=== PATIENT | male | born 1965 | race African-American/Black ===

== ENCOUNTER 2017-08-01 13:42 | Emergency (ER) | payer SELFPAY, OTHER ==
[2017-08-01] MEDS: ALBUTEROL SULFATE 2.5 MG/0.5 ML INH NEB SOLN NEB (16:03)
[2017-08-01 16:51] LABS: INFLUENZA A AMPLIFICATION POSITIVE (NEGATIVE); INFLUENZA B AMPLIFICATION NEGATIVE (NEGATIVE)
[2017-08-01] MEDS: ACETAMINOPHEN 325 MG TAB PO (17:15)
== END 2017-08-01 17:17 | disposition home or self-care (01) ==
LOC: M ED 13:42
DX: J44.1 Chronic obstructive pulmonary disease with (acute) exacerbation (principal); J10.1 Influenza due to other identified influenza virus with other respiratory manifestations; E78.4 Other hyperlipidemia; Z87.891 Personal history of nicotine dependence
CPT/HCPCS: 71046

== ENCOUNTER 2017-09-18 21:21 | Emergency (ER) | payer MEDICAID, SELFPAY | END 2017-09-19 00:13 | disposition home or self-care (01) | LOC: M ED 09-19 00:13 | DX: S93.401A Sprain of unspecified ligament of right ankle, initial encounter (principal); V13.4XXA Pedal cycle driver injured in collision with car, pick-up truck or van in traffic accident, initial encounter; Y92.410 Unspecified street and highway as the place of occurrence of the external cause; R73.03 Prediabetes; I10 Essential (primary) hypertension; E78.9 Disorder of lipoprotein metabolism, unspecified; Z79.899 Other long term (current) drug therapy; Z88.0 Allergy status to penicillin; Z88.8 Allergy status to other drugs, medicaments and biological substances | CPT/HCPCS: 73610 ==

== ENCOUNTER → 2017-12-21 | Outpatient (CLI) | payer OTHER | LOC: M RAD 13:58 | DX: M41.9 Scoliosis, unspecified (principal); M51.16 Intervertebral disc disorders with radiculopathy, lumbar region; M51.17 Intervertebral disc disorders with radiculopathy, lumbosacral region; M48.061 Spinal stenosis, lumbar region without neurogenic claudication | CPT/HCPCS: 72148 ==

== ENCOUNTER → 2017-12-28 | Outpatient (CLI) | payer OTHER | LOC: M RAD 09:12 | DX: M25.571 Pain in right ankle and joints of right foot (principal); M21.961 Unspecified acquired deformity of right lower leg | CPT/HCPCS: 73721 ==

== ENCOUNTER 2018-07-15 11:45 | Emergency (ER) | payer OTHER ==
[~2018-07-15] VITALS: Ht 182.9 cm; Wt 115.9 kg
[~2018-07-15 11:45] MED LIST: CRES10TA32 PO; GABA-845 PO; OSEL75CA PO; VENTAER INH
[2018-07-15] MEDS ORDERED: MELO15TA28 (11:51)
[2018-07-15 12:29] LABS: BASO % 0.4 % (0.0-1.0); EOS # 0.6 10^3/uL (0.0-0.50); EOS % 10.6 % (0.0-3.0); HEMATOCRIT 40.9 % (42.0-52.0); HEMOGLOBIN 14.1 g/dl (13.5-17.5); LYMPH # 1.9 10^3/uL (1.5-4.5); LYMPH % 33.9 % (24.0-44.0); MEAN CORPUSCULAR HEMOGLOBIN 31.4 pg (27.0-33.0); MEAN CORPUSCULAR HGB CONC 34.5 g/dl (32.0-36.5); MEAN CORPUSCULAR VOLUME 91.1 fl (80.0-96.0); MONO # 0.4 10^3/uL (0.0-0.8); MONO % 6.3 % (0.0-5.0); NEUTROPHILS # 2.7 10^3/uL (1.8-7.7); NEUTROPHILS % 48.1 % (36.0-66.0); PLATELET COUNT, AUTOMATED 237 10^3/uL (150-450); RED BLOOD COUNT 4.49 10^6/uL (4.30-6.10); WHITE BLOOD COUNT 5.7 10^3/uL (4.0-10.0)
--- NOTE | 2018-07-15 12:34 | REP ---
Portable chest x-ray: Single view. History: Chest pain. Comparison study: August 01, 2017. Findings: EKG electrodes are seen. Lungs are well inflated and are clear. Pleural angles are sharp. Cardiomediastinal silhouette and bony thorax are unremarkable. Impression: Negative portable chest x-ray. Electronically Signed by Balwinder Taylor MD 07/15/2018 12:25 P
[2018-07-15 12:44] LABS: INR 1.05; PROTHROMBIN TIME 13.8 SECONDS (12.1-14.4)
[2018-07-15 12:59] LABS: ALBUMIN 3.7 GM/DL (3.2-5.2); ALT/SGPT 22 U/L (12-78); BILIRUBIN,TOTAL 0.5 MG/DL (0.2-1.0); BLOOD UREA NITROGEN 20 MG/DL (7-18); CALCIUM LEVEL 8.7 MG/DL (8.5-10.1); CARBON DIOXIDE LEVEL 26 MEQ/L (21-32); CHLORIDE LEVEL 105 MEQ/L (98-107); CPK CREATINE PHOSPHOKINASE 176 U/L (39-308); CREATININE FOR GFR 1.15 MG/DL (0.70-1.30); GLOMERULAR FILTRATION RATE > 60.0 (>56); GLUCOSE, FASTING 106 MG/DL (70-100); LIPASE 159 U/L (73-393); MB/CK RELATIVE INDEX 0.85 (< OR =4); POTASSIUM SERUM 4.1 MEQ/L (3.5-5.1); SODIUM LEVEL 138 MEQ/L (136-145); TOTAL PROTEIN 7.4 GM/DL (6.4-8.2); TROPONIN I < 0.02 NG/ML (< 0.10)
[2018-07-15 13:15] VITALS: BP 117/68
[2018-07-15] MEDS ORDERED: IBUP-1022 PO (13:32)
[2018-07-15] MEDS ORDERED: CYCL10TA PO (13:32)
--- NOTE | 2018-07-15 20:09 | ECGEPIP ---
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
== END 2018-07-15 13:54 | disposition home or self-care (01) ==
LOC: M ED 11:45
DX: M54.10 Radiculopathy, site unspecified (principal); I51.9 Heart disease, unspecified; Z88.0 Allergy status to penicillin; Z88.8 Allergy status to other drugs, medicaments and biological substances; Z79.899 Other long term (current) drug therapy

== ENCOUNTER 2019-03-07 15:29 | Emergency (ER) | payer MEDICAID, OTHER, SELFPAY ==
[~2019-03-07] VITALS: Ht 182.9 cm; Wt 108.0 kg
[~2019-03-07 15:29] MED LIST changes: +CRES10TA PO; -CRES10TA32 PO; +CYCL10TA PO; +IBUP-1022 PO; +MELO15TA28
[2019-03-07] MEDS ORDERED: IBUP200T45 PO (15:46)
[2019-03-07 16:02] LABS: BASO % 0.5 % (0.0-1.0); EOS # 0.4 10^3/uL (0.0-0.5); EOS % 6.1 % (0.0-3.0); HEMATOCRIT 41.9 % (42.0-52.0); HEMOGLOBIN 14.4 g/dl (13.5-17.5); LYMPH # 2.5 10^3/uL (1.5-5.0); LYMPH % 39.5 % (24.0-44.0); MEAN CORPUSCULAR HEMOGLOBIN 31.4 pg (27.0-33.0); MEAN CORPUSCULAR HGB CONC 34.4 g/dl (32.0-36.5); MEAN CORPUSCULAR VOLUME 91.5 fl (80.0-96.0); MONO # 0.4 10^3/uL (0.0-0.8); MONO % 6.8 % (0.0-5.0); NEUTROPHILS # 2.9 10^3/uL (1.5-8.5); NEUTROPHILS % 46.6 % (36.0-66.0); PLATELET COUNT, AUTOMATED 224 10^3/uL (150-450); RED BLOOD COUNT 4.58 10^6/uL (4.30-6.10); WHITE BLOOD COUNT 6.2 10^3/uL (4.0-10.0)
[2019-03-07 16:30] LABS: BLOOD UREA NITROGEN 13 MG/DL (7-18); CALCIUM LEVEL 9.1 MG/DL (8.5-10.1); CARBON DIOXIDE LEVEL 27 MEQ/L (21-32); CHLORIDE LEVEL 109 MEQ/L (98-107); CK-MB VALUE MASS 2.2 NG/ML (<3.6); CPK CREATINE PHOSPHOKINASE 166 U/L (39-308); CREATININE FOR GFR 1.12 MG/DL (0.70-1.30); GLOMERULAR FILTRATION RATE > 60.0 (>56); GLUCOSE, FASTING 115 MG/DL (70-100); MB/CK RELATIVE INDEX 1.33 (< OR =4); POTASSIUM SERUM 3.9 MEQ/L (3.5-5.1); SODIUM LEVEL 141 MEQ/L (136-145); TROPONIN I < 0.02 NG/ML (< 0.10)
--- NOTE | 2019-03-07 16:30 | REP ---
Clinical: Chest pain . Comparison: 07/15/2018 . Findings: The mediastinum and cardiac silhouette are stable and within normal limits for portable technique. The lung corey are clear without acute consolidation, effusion, or pneumothorax. Skeletal structures are intact. Impression: No acute cardiopulmonary process appreciated. Electronically Signed by Haroon Lee MD 03/07/2019 04:22 P
--- NOTE | 2019-03-07 19:38 | ECGEPIP ---
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
[2019-03-07 20:50] LABS: CK-MB VALUE MASS 1.9 NG/ML (<3.6); CPK CREATINE PHOSPHOKINASE 142 U/L (39-308); MB/CK RELATIVE INDEX 1.34 (< OR =4); TROPONIN I < 0.02 NG/ML (< 0.10)
[2019-03-07 21:26] VITALS: BP 138/97
--- NOTE | 2019-03-08 20:31 | ECGEPIP ---
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
== END 2019-03-07 21:27 | disposition home or self-care (01) ==
LOC: M ED 15:29
DX: R07.89 Other chest pain (principal); M54.12 Radiculopathy, cervical region; J45.909 Unspecified asthma, uncomplicated; Z79.899 Other long term (current) drug therapy; Z88.0 Allergy status to penicillin; Z88.1 Allergy status to other antibiotic agents

== ENCOUNTER 2019-04-30 16:18 | Emergency (ER) | payer MEDICAID, OTHER, SELFPAY ==
[~2019-04-30] VITALS: Ht 182.9 cm; Wt 106.8 kg
[~2019-04-30 16:18] MED LIST changes: +IBUP200T45 PO
[2019-04-30] MEDS ORDERED: MELO15TA28 PO (16:28)
[2019-04-30] MEDS ORDERED: MORPHINE 2 MG/ML 1ML VIAL (J2270) IV ONE (17:00)
[2019-04-30] MEDS ORDERED: ISOVUE-370 76% 100ML VIAL (Q9967) As Ordered ONE (17:36)
[2019-04-30 17:45] LABS: BASO % 0.4 % (0.0-1.0); EOS # 0.4 10^3/uL (0.0-0.5); EOS % 4.1 % (0.0-3.0); HEMATOCRIT 47.1 % (42.0-52.0); HEMOGLOBIN 15.4 g/dl (13.5-17.5); LYMPH # 1.7 10^3/uL (1.5-5.0); LYMPH % 16.6 % (24.0-44.0); MEAN CORPUSCULAR HEMOGLOBIN 30.9 pg (27.0-33.0); MEAN CORPUSCULAR HGB CONC 32.7 g/dl (32.0-36.5); MEAN CORPUSCULAR VOLUME 94.4 fl (80.0-96.0); MONO # 0.5 10^3/uL (0.0-0.8); NEUTROPHILS # 7.5 10^3/uL (1.5-8.5); NEUTROPHILS % 73.1 % (36.0-66.0); PLATELET COUNT, AUTOMATED 225 10^3/uL (150-450); RED BLOOD COUNT 4.99 10^6/uL (4.30-6.10); WHITE BLOOD COUNT 10.2 10^3/uL (4.0-10.0)
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
[2019-04-30 19:20] LABS: APPEARANCE, URINE CLEAR (CLEAR); BACTERIA, URINE AUTO NEGATIVE (NEGATIVE); BILIRUBIN, URINE AUTO NEGATIVE (NEGATIVE); BLOOD, URINE BLOOD NEGATIVE (NEGATIVE); COLOR, URINE YELLOW (YELLOW); GLUCOSE, URINE (UA) AUTO NEGATIVE (NEGATIVE); KETONE, URINE AUTO NEGATIVE (NEGATIVE); LEUKOCYTE ESTERASE, URINE AUTO NEGATIVE (NEGATIVE); MUCUS, URINE SMALL (NEGATIVE); NITRITE, URINE AUTO NEGATIVE (NEGATIVE); PROTEIN, URINE AUTO 1+ mg/dL (NEGATIVE); RBC, URINE AUTO 7 /HPF (0-3); SPECIFIC GRAVITY URINE AUTO 1.047 (1.002-1.035); SQUAMOUS EPITHELIAL CELL UR AU 0 /HPF (0-6); UROBILINOGEN, URINE AUTO 0.2 mg/dL (0.0-2.0); WBC, URINE AUTO 1 /HPF (0-3)
[2019-04-30 19:58] LABS: ALBUMIN 3.8 GM/DL (3.2-5.2); ALT/SGPT 28 U/L (12-78); BILIRUBIN,TOTAL 0.7 MG/DL (0.2-1.0); BLOOD UREA NITROGEN 11 MG/DL (7-18); CALCIUM LEVEL 8.9 MG/DL (8.5-10.1); CARBON DIOXIDE LEVEL 27 MEQ/L (21-32); CHLORIDE LEVEL 105 MEQ/L (98-107); CREATININE FOR GFR 1.17 MG/DL (0.70-1.30); GLOMERULAR FILTRATION RATE > 60.0 (>56); GLUCOSE, FASTING 85 MG/DL (70-100); POTASSIUM SERUM 4.3 MEQ/L (3.5-5.1); SODIUM LEVEL 135 MEQ/L (136-145); TOTAL PROTEIN 7.7 GM/DL (6.4-8.2)
[2019-04-30] MEDS ORDERED: NS 1,000 ML IV ONE (20:15)
[2019-04-30 21:42] VITALS: BP 147/86
== END 2019-04-30 22:02 | disposition home or self-care (01) ==
LOC: EDBD 16:18 → M ED 16:18
DX: S29.011A Strain of muscle and tendon of front wall of thorax, initial encounter (principal); V49.49XA Driver injured in collision with other motor vehicles in traffic accident, initial encounter; Y92.410 Unspecified street and highway as the place of occurrence of the external cause; G89.29 Other chronic pain; M54.9 Dorsalgia, unspecified; Z79.899 Other long term (current) drug therapy; Z88.0 Allergy status to penicillin; Z88.1 Allergy status to other antibiotic agents
CPT/HCPCS: 70450; 71260; 72125; 74177; 80053; 81001; 85025; 96361; 96374; 99284; J2270; Q9967

== ENCOUNTER 2020-03-09 17:08 | Emergency (ER) | payer OTHER ==
[~2020-03-09] VITALS: Ht 180.3 cm; Wt 109.5 kg
[~2020-03-09 17:08] MED LIST changes: +CYCL-707 PO; -CYCL10TA PO; +MELO15TA28 PO
[2020-03-09] MEDS ORDERED: VITAD400CA FT (17:14)
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
[2020-03-09] MEDS ORDERED: NORCO, ANEXSIA 5/325MG TABLET (HYDROcodone/ACETAMINOPHEN) PO ONE (19:45)
[2020-03-09 20:02] VITALS: BP 138/88
== END 2020-03-09 20:02 | disposition home or self-care (01) ==
LOC: M ED 17:08
DX: S59.912A Unspecified injury of left forearm, initial encounter (principal); X58.XXXA Exposure to other specified factors, initial encounter; Y92.018 Other place in single-family (private) house as the place of occurrence of the external cause; R73.03 Prediabetes; E78.5 Hyperlipidemia, unspecified; M19.90 Unspecified osteoarthritis, unspecified site; Z79.899 Other long term (current) drug therapy; Z88.0 Allergy status to penicillin; Z88.1 Allergy status to other antibiotic agents

== ENCOUNTER → 2020-03-14 | Outpatient (CLI) | payer OTHER ==
[~2020-03-14] MED LIST changes: +VITAD400CA FT
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
== END ==
LOC: M RAD 13:51
PROVIDERS: ATTEND Orthopaedic Surgery
DX: S46.112D Strain of muscle, fascia and tendon of long head of biceps, left arm, subsequent encounter (principal)

== ENCOUNTER 2020-07-17 16:39 | Emergency (ER) | payer OTHER ==
[~2020-07-17] VITALS: Ht 182.9 cm; Wt 113.6 kg
[2020-07-17] MEDS ORDERED: GEMF600T5 PO (16:56)
[2020-07-17] MEDS ORDERED: ALTA1CAP3 PO (16:56)
[2020-07-17] MEDS ORDERED: BUPR150T5 PO (16:56)
[2020-07-17] MEDS ORDERED: ACETAMINOPHEN TAB 650MG DOSE (2X325MG) PO ONE (17:00)
[2020-07-17] MEDS ORDERED: methylPREDNISolone 125MG 2ML VIAL IV ONE (17:00)
[2020-07-17 17:15] LABS: BASO % 0.5 % (0.0-1.0); EOS # 0.1 10^3/uL (0.0-0.5); EOS % 1.4 % (0.0-3.0); HEMATOCRIT 42.8 % (42.0-52.0); HEMOGLOBIN 13.8 g/dl (13.5-17.5); LYMPH # 1.6 10^3/uL (1.5-5.0); LYMPH % 35.1 % (24.0-44.0); MEAN CORPUSCULAR HEMOGLOBIN 30.3 pg (27.0-33.0); MEAN CORPUSCULAR HGB CONC 32.2 g/dl (32.0-36.5); MEAN CORPUSCULAR VOLUME 94.1 fl (80.0-96.0); MONO # 0.4 10^3/uL (0.0-0.8); MONO % 9.3 % (0.0-5.0); NEUTROPHILS # 2.3 10^3/uL (1.5-8.5); PLATELET COUNT, AUTOMATED 167 10^3/uL (150-450); RED BLOOD COUNT 4.55 10^6/uL (4.30-6.10); WHITE BLOOD COUNT 4.4 10^3/uL (4.0-10.0)
[2020-07-17] MEDS: COMBIVENT RESPIMAT 100-20MCG INHALER 4GM INH SCH ×3 (17:30→17:59)
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
[2020-07-17 17:40] LABS: BLOOD UREA NITROGEN 16 MG/DL (7-18); CALCIUM LEVEL 8.6 MG/DL (8.5-10.1); CARBON DIOXIDE LEVEL 26 MEQ/L (21-32); CHLORIDE LEVEL 108 MEQ/L (98-107); CREATININE FOR GFR 1.39 MG/DL (0.70-1.30); GLOMERULAR FILTRATION RATE > 60.0 (>56); GLUCOSE, FASTING 121 MG/DL (70-100); SODIUM LEVEL 141 MEQ/L (136-145)
[2020-07-17 17:46] LABS: RSV AMPLIFICATION NEGATIVE (NEGATIVE)
[2020-07-17 18:19] LABS: ALBUMIN 3.8 GM/DL (3.2-5.2); ALT/SGPT 54 U/L (12-78); BILIRUBIN,DIRECT 0.2 MG/DL (0.0-0.2); BILIRUBIN,TOTAL 0.6 MG/DL (0.2-1.0); C REACTIVE PROTEIN QUANTITATIV 0.88 MG/DL (0.00-0.30); FERRITIN 623 NG/ML (26-388); TOTAL PROTEIN 7.5 GM/DL (6.4-8.2); TROPONIN I < 0.02 NG/ML (< 0.10)
--- OUTSIDE RECORDS SUMMARY | 2020-07-17 18:43 | CCD ---
Author Author Chiki Astudilloto Organization Unknown Address [address] [address] Phone Care Team Providers Care Methods Examiner Name Role Phone Paras Astudillo PCP Allergies, Adverse Reactions, Alerts No Data in Section Problem List Concept Problem Description Status Start Date Created Date Resolv ed Date Snomed Code F43.23 Adjustment Disorder, With mixed anxiety and depressed mood Active 06/08/2020 Medications No Data in Section Social History Social History Element Description Concept Effective Date Smoking Status Unknown if ever smoked [id number] Immunizations No Data in Section Vital Signs No Data in Section Procedures Date Concept Id Description Targeted Site Concept Targeted Site Concept Type 06/08/2020 16144 Psychiatric Diagnostic Evaluation (Non-Medical) CPT Patient has no history of implantable de vices Encounters Encounter Start Date End Date Encounter Type Description Diagnosis Di agnosis Desc Location Author First Name Author Last Name Npid Taxonomy Cod e Taxonomy Desc Phone Number Location Addr1 Location Addr2 Location [facility] Location [facility] [id number] 06/08/2020 06/08/2020 25918 Psychiatric Rachael gnostic Evaluation (Non-Medical) F43.23 Adjustment disorder with mixed anxiety a nd depressed mood [facility] Baudilio Crain [id number] 

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
--- OUTSIDE RECORDS SUMMARY | 2020-07-17 18:43 | CCD ---
Author Author Chiki Astudilloto Organization Unknown Address [address] [address] Phone Care Team Providers Care Spa Receptionist Name Role Phone Paras Astudillo PCP Allergies, Adverse Reactions, Alerts No Data in Section Problem List Concept Problem Description Status Start Date Created Date Resolv ed Date Snomed Code F43.23 Adjustment Disorder, With mixed anxiety and depressed mood Active 06/17/2020 Medications No Data in Section Social History Social History Element Description Concept Effective Date Smoking Status Unknown if ever smoked [id number] Immunizations No Data in Section Vital Signs No Data in Section Procedures Date Concept Id Description Targeted Site Concept Targeted Site Concept Type 06/16/2020 62577 Psychiatric Diagnostic Evaluation (Non-Medical) CPT Patient has no history of implantable de vices Encounters Encounter Start Date End Date Encounter Type Description Diagnosis Di agnosis Desc Location Author First Name Author Last Name Npid Taxonomy Cod e Taxonomy Desc Phone Number Location Addr1 Location Addr2 Location [facility] Location [facility] [id number] 06/16/2020 06/16/2020 36541 Psychiatric Rachael gnostic Evaluation (Non-Medical) F43.23 Adjustment disorder with mixed anxiety a nd depressed mood [facility] Baudilio Crain [id number] 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
--- OUTSIDE RECORDS SUMMARY | 2020-07-17 18:43 | CCD ---
Author Author Chiki Astudilloto Organization Unknown Address [address] [phone] Phone Care Team Providers Care Makeup Instructor Name Role Phone Paras Astudillo PCP Allergies, Adverse Reactions, Alerts No Data in Section Problem List Concept Problem Description Status Start Date Created Date Resolv ed Date Snomed Code F43.23 Adjustment Disorder, With mixed anxiety and depressed mood Active 07/15/2020 Medications No Data in Section Social History Social History Element Description Concept Effective Date Smoking Status Unknown if ever smoked [id number] Immunizations No Data in Section Vital Signs No Data in Section Procedures Date Concept Id Description Targeted Site Concept Targeted Site Concept Type 07/15/2020 43853 Extended Individual Psychotherapy - 45 min CPT Patient has no history of implantable de vices Encounters Encounter Start Date End Date Encounter Type Description Diagnosis Di agnosis Desc Location Author First Name Author Last Name Npid Taxonomy Cod e Taxonomy Desc Phone Number Location Addr1 Location Addr2 Location [facility] Location [facility] [id number] 07/15/2020 07/15/2020 89382 Extended Individual Psych otherapy - 45 min F43.23 Adjustment disorder with mixed anxiety and depressed m ood [facility] Baudilio Crain [id number] Social Wo rker [phone] [address] [phone] Plan of Treatment No Data in Section Lab Results No Data in Section Instructions No Data in Section Insurance Providers Insurance Id Policy Effective Date Policy Thru Date Company N lorie [id number] 2019 BALAJI - MEDICA ID MANAGED
[2020-07-17 20:34] VITALS: BP 176/90
[2020-07-18] MEDS ORDERED: VITA50005 PO (19:58)
[2020-07-18] MEDS ORDERED: VITMTA PO (19:58)
[2020-07-18] MEDS ORDERED: ROSU40TA4 PO (19:58)
[2020-07-18] MEDS ORDERED: WELLTAB38 PO (19:58)
== END 2020-07-17 20:41 | disposition home or self-care (01) ==
LOC: EDBD 16:39 → M ED 16:39
DX: U07.1 COVID-19 (principal); J45.901 Unspecified asthma with (acute) exacerbation; I51.7 Cardiomegaly; E78.5 Hyperlipidemia, unspecified; J44.9 Chronic obstructive pulmonary disease, unspecified; Z87.891 Personal history of nicotine dependence; Z88.0 Allergy status to penicillin; Z88.8 Allergy status to other drugs, medicaments and biological substances; Z79.899 Other long term (current) drug therapy; Z79.51 Long term (current) use of inhaled steroids
CPT/HCPCS: 71045; 80048; 80076; 82728; 83605; 85025; 85379; 86140; 87040; 87077; 87186; 87631; 94640; 96374; 99284; J2930

== ENCOUNTER 2020-07-17 19:25 | Outpatient (CLI) | payer OTHER ==
--- NOTE | 2020-07-17 19:23 | IPNPDOC ---
Text Note Date of Service The patient was seen on 07/17/20. NOTE Patient is 54 years old male with past medical history of hypertension, asthma presented hospital with increased shortness of breath. Patient was found to have positive COVID 19 test. Physical exam pertinent for diminished lung sounds bilaterally. Patient signed consent form for monoclonal antibiotic infusion NISREEN ESPINAL DO Jul 17, 2020 19:23
[~2020-07-17 19:25] MED LIST changes: +ALTA1CAP3 PO; +BUPR150T5 PO; +GEMF600T5 PO; +NS 1,000 ML IV SCH
[2020-07-17] MEDS ORDERED: EPINEPHrine INJ 1 MG/ML 1ML AMP IM PRN (19:30)
[2020-07-17] MEDS ORDERED: ALBUTEROL SULFATE 2.5 MG/0.5 ML INH NEB SOLN INH PRN (19:30)
[2020-07-17] MEDS ORDERED: diphenhydrAMINE 50MG/ML VIAL (J1200) IV PRN (19:30)
[2020-07-17] MEDS ORDERED: BAMLANIVIMAB 700 MG in NS 250 ML IV ONE (19:30)
[2020-07-17] MEDS ORDERED: ALBUTEROL 90 MCG/ACT 8GM HFA INHALER INH PRN (19:30)
[2020-07-17] MEDS ORDERED: methylPREDNISolone 125MG 2ML VIAL IV PRN (19:30)
[2020-07-17 21:00] VITALS: BP 149/88
[2020-07-17 22:00] VITALS: BP 133/74
[2020-07-17 22:30] VITALS: BP 127/81
[2020-07-17 23:45] VITALS: BP 144/80
[2020-07-18] MEDS ORDERED: ROSU40TA4 PO (19:58)
[2020-07-18] MEDS ORDERED: VITMTA PO (19:58)
[2020-07-18] MEDS ORDERED: WELLTAB38 PO (19:58)
[2020-07-18] MEDS ORDERED: VITA50005 PO (19:58)
[2020-07-19] MEDS ORDERED: VENTAER INH (11:54)
[2020-07-19] MEDS ORDERED: DOXY-350 PO (11:54)
[2020-07-19] MEDS ORDERED: DEXA0.5E2 PO (11:54)
== END 2020-07-18 | disposition home or self-care (01) ==
LOC: M OPCLI4PV 19:25 → M 4MAIN 20:49 → M OPCLI4PV 07-18
PROVIDERS: ATTEND Internal Medicine
DX: U07.1 COVID-19 (principal); Z88.0 Allergy status to penicillin; Z88.8 Allergy status to other drugs, medicaments and biological substances

== ENCOUNTER 2020-07-18 15:42 | Inpatient (IN) | payer OTHER ==
[~2020-07-18] VITALS: Ht 182.9 cm; Wt 107.2 kg
[~2020-07-18 15:42] MED LIST changes: -NS 1,000 ML IV SCH
--- OUTSIDE RECORDS SUMMARY | 2020-07-18 15:50 | CCD ---
Author Author [facility] Organization [facility] Address Unknown Phone Unavailable Care Team Providers Care History Department Chair Name Role Phone Baudilio Paras Unavailable Paras [...] is protected by Article 27-F of the [facility] Public Health law. If you continue you may have access to information: Regarding HIV / AIDS; Provided by facilities licensed or operated by the [facility] Office of Mental Health; or Provided by the [facility] Office for People With Developmental Disabilities. If such information is present, then the following [facility] mandated warning applies: This information has been [...] law may result in a fine or retirement sentence or both. A general authorization for [...] Psychotherapy - 45 min Attender: Mitesh Astudillo [facility] 07/15/2020 08:00:00 AM EST - 07/15/2020 08:00:00 AM EST [facility] ([facility]) Attender: Paras Astudillo 07/15/2020 12:00:00 AM EST [facility] ([facility]) Psychiatric Diagnostic Evaluation (Non-Medical) Attender: Dameon Astudillo [facility] 06/16/2020 08:00:00 AM EST - 06/16/2020 08:00:00 AM EST [facility] ([facility]) Attender: Paras Astudillo 06/16/2020 12:00:00 AM EST [facility] ([facility]) Psychiatric Diagnostic Evaluation (Non-Medical) Attender: Dameon Astudillo [facility] 06/08/2020 09:00:00 AM EST - 06/08/2020 09:00:00 AM EST [facility] ([facility]) Attender: Paras Astudillo 06/08/2020 12:00:00 AM EST [facility] ([facility]) Outpatient Attender: ARMIN HEIN MD Physical Therapy 01:30:00 PM EDT [facility] ([facility]) Outpatient Attender: ARMIN HEIN MD Physical Therapy 11:30:00 AM EDT [facility] ([facility]) Insurance Providers Payer name Policy type / Coverage type Policy ID Covered alliance party ID Covered alliance party's relationship to blankenship Policy Blankenship Plan Information BALAIJ [id number] SP [id number] [place] O [id number] S [id number] BALAJI [id number] SP [id number] 500 OTHER NO FAULT [id number] SP [id number] NATIONAL GENERAL INS O [id number] S [id number] MEDICAID [id number] SP [id number] SELF PAY ONLY [id number] SP [id number] MEDICAID M [id number] S [id number] [facility] [id number] SP [id number] [facility] O [id number] S [id number] [place] [id number] Self [id number] [facility] Community Plan Commercial [id number] Self [id number] [place] [id number] Self [id number] [place] [id number] Self [id number] [place] [id number] Self [id number] [place] [id number] Self [id number] [place] [id number] Self [id number] SELF PAY ONLY [phone] SP [phone] [facility] [id number] [facility] [id number] [facility] [id number] Problems, Conditions, and Diagnoses Code Display Name Description Problem Type Effective Dates Data Source(s) F43.23 Adjustment disorder with mixed anxiety a nd depressed mood Adjustment Disorder, With mixed anxiety and depressed mood Condition 2020 12:00:00 AM EST [facility] ([facility]) Surgeries/Procedures Procedure Description Date Indications Data Source(s) Extended Individual Psychotherapy - 45 min 07/15/2020 12:00:00 AM EST - 07/15/2020 12:00:00 AM EST [facility] ([facility]) Extended Individual Psychotherapy - 45 min 12:00:00 AM EST [facility] ([facility]) Psychiatric Diagnostic Evaluation (Non-Medical) 06/16/2020 12:00:00 AM EST - 06/16/2020 12:00:00 AM EST [facility] ([facility]) Psychiatric Diagnostic Evaluation (Non-Medical) 2019 12:00:00 AM EST [facility] ([facility]) Psychiatric Diagnostic Evaluation (Non-Medical) 06/08/2020 12:00:00 AM EST - 06/08/2020 12:00:00 AM EST [facility] ([facility]) Psychiatric Diagnostic Evaluation (Non-Medical) 2019 12:00:00 AM EST [facility] ([facility]) Social History Code Duration Value Status Description Data Source(s ) Smoking 07/15/2020 12:00:00 AM EST Unknown if ever smoked comp leted Unknown if ever smoked [facility] ([facility]) Smoking 06/16/2020 12:00:00 AM EST Unknown if ever smoked comp leted Unknown if ever smoked [facility] ([facility]) Smoking 06/08/2020 12:00:00 AM EST Unknown if ever smoked comp leted Unknown if ever smoked [facility] ([facility]) Vital Signs ID Date Data Source UNK Name Value Range Interpretation Code Description Data Source(s) Body mass index (BMI) [Ratio] 32.5 kg/m2 32.5 k g/m2 [facility] ([facility] Body weight 240.00 [lb_av] 240.00 [lb_av] JOYCELYN T ([facility]) Body height 72 [in_i] 72 [in_i] [facility] ([facility] 6'0" Body temperature 97.7 [degF] 97.7 [degF] [facility] ([facility])
[2020-07-18] MEDS ORDERED: predniSONE 20 MG TAB PO ONE (16:00)
[2020-07-18] MEDS ORDERED: ACETAMINOPHEN TAB 650MG DOSE (2X325MG) PO ONE (16:00)
--- OUTSIDE RECORDS SUMMARY | 2020-07-18 16:16 | CCD ---
Author Author [facility] Organization [facility] Address Unknown Phone Unavailable Care Team Providers Care Operational Risk Manager Name Role Phone Baudilio Paras Unavailable Paras [...] is protected by Article 27-F of the [facility] Public Health law. If you continue you may have access to information: Regarding HIV / AIDS; Provided by facilities licensed or operated by the [facility] Office of Mental Health; or Provided by the [facility] Office for People With Developmental Disabilities. If such information is present, then the following [facility] mandated warning applies: This information has [...] law may result in a fine or residential sentence or both. A general authorization for [...] Psychotherapy - 45 min Attender: Mitesh Astudillo [facility] 07/15/2020 08:00:00 AM EST - 07/15/2020 08:00:00 AM EST [facility] ([facility]) Attender: Paras Astudillo 07/15/2020 12:00:00 AM EST [facility] ([facility]) Psychiatric Diagnostic Evaluation (Non-Medical) Attender: Dameon Astudillo [facility] 06/16/2020 08:00:00 AM EST - 06/16/2020 08:00:00 AM EST [facility] ([facility]) Attender: Paras Astudillo 06/16/2020 12:00:00 AM EST [facility] ([facility]) Psychiatric Diagnostic Evaluation (Non-Medical) Attender: Dameon Astudillo [facility] 06/08/2020 09:00:00 AM EST - 06/08/2020 09:00:00 AM EST [facility] ([facility]) Attender: Paras Astudillo 06/08/2020 12:00:00 AM EST [facility] ([facility]) Outpatient Attender: ARMIN HEIN MD Physical Therapy 01:30:00 PM EDT [facility] ([facility]) Outpatient Attender: ARMIN HEIN MD Physical Therapy 11:30:00 AM EDT [facility] ([facility]) Insurance Providers Payer name Policy type / Coverage type Policy ID Covered republican ID Covered republican's relationship to blankenship Policy Blankenship Plan Information BALAJI [id number] SP [id number] 500 [place] O [id number] S [id number] BALAJI [id number] SP [id number] 500 OTHER NO FAULT [id number] SP [id number] NATIONAL GENERAL INS O [id number] S [id number] MEDICAID [id number] SP [id number] SELF PAY ONLY [id number] SP [id number] MEDICAID M [id number] S [id number] [facility] [id number] SP [id number] [facility] O [id number] S [id number] [place] [id number] Self [id number] [facility] Community Plan Commercial [id number] Self [id number] [place] Med[place] [id number] Self [id number] [place] [id number] Self [id number] [place] [id number] Self [id number] [place] [id number] Self [id number] [place] B [id number] Self [id number] SELF PAY ONLY [id number] SP [phone] [facility] [address] [facility] [id number] [facility] [id number] [facility] [id number] Problems, Conditions, and Diagnoses Code Display Name Description Problem Type Effective Dates Data Source(s) F43.23 Adjustment disorder with mixed anxiety a nd depressed mood Adjustment Disorder, With mixed anxiety and depressed mood Condition 2020 12:00:00 AM EST [facility] ([facility]) Surgeries/Procedures Procedure Description Date Indications Data Source(s) Extended Individual Psychotherapy - 45 min 07/15/2020 12:00:00 AM EST - 07/15/2020 12:00:00 AM EST [facility] ([facility]) Extended Individual Psychotherapy - 45 min 12:00:00 AM EST [facility] ([facility]) Psychiatric Diagnostic Evaluation (Non-Medical) 06/16/2020 12:00:00 AM EST - 06/16/2020 12:00:00 AM EST [facility] ([facility]) Psychiatric Diagnostic Evaluation (Non-Medical) 2019 12:00:00 AM EST [facility] ([facility]) Psychiatric Diagnostic Evaluation (Non-Medical) 06/08/2020 12:00:00 AM EST - 06/08/2020 12:00:00 AM EST [facility] ([facility]) Psychiatric Diagnostic Evaluation (Non-Medical) 2019 12:00:00 AM EST [facility] ([facility]) Social History Code Duration Value Status Description Data Source(s ) Smoking 07/15/2020 12:00:00 AM EST Unknown if ever smoked comp leted Unknown if ever smoked [facility] ([facility]) Smoking 06/16/2020 12:00:00 AM EST Unknown if ever smoked comp leted Unknown if ever smoked [facility] ([facility]) Smoking 06/08/2020 12:00:00 AM EST Unknown if ever smoked comp leted Unknown if ever smoked [facility] ([facility]) Vital Signs ID Date Data Source UNK Name Value Range Interpretation Code Description Data Source(s) Body mass index (BMI) [Ratio] 32.5 kg/m2 32.5 k g/m2 [facility] ([facility] Body weight 240.00 [lb_av] 240.00 [lb_av] JOYCELYN T ([facility]) Body height 72 [in_i] 72 [in_i] [facility] ([facility] 6'0" Body temperature 97.7 [degF] 97.7 [degF] [facility] ([facility])
[2020-07-18] MEDS: COMBIVENT RESPIMAT 100-20MCG INHALER 4GM INH SCH ×3 (16:26→23:11)
[2020-07-18] MEDS ORDERED: VITA50005 PO (19:58)
[2020-07-18] MEDS ORDERED: WELLTAB38 PO (19:58)
[2020-07-18] MEDS ORDERED: ROSU40TA4 PO (19:58)
[2020-07-18] MEDS ORDERED: VITMTA PO (19:58)
[2020-07-18] MEDS ORDERED: ALBUTEROL 90 MCG/ACT 8GM HFA INHALER INH PRN (21:00)
[2020-07-18] MEDS ORDERED: ramipriL 5 MG CAP PO SCH (21:00)
--- NOTE | 2020-07-18 21:08 | HPEPDOC ---
General Date of Admission Date of Service: Jul 18, [address] Lozada at [facility] Attending Physician: Adán Call MD Chief Complaint The patient is a 54-year-old male admitted with a reason for visit of Short Of Breath-+Covid. Source: Patient, RN/, Old records History of Present Illness About 5 days ago Mr. Merida thought he was having an asthma attack. He had not needed asthma medications recently and said he did not have any on hand. He took Tylenol and Delsym and these initially seemed to help relieve his symptoms. However, as the days went on, he continued to have more difficulty with breathing. The day prior to admission he was seen in the ER and was diagnosed with a COVID-19 infection. As his symptoms were mild, at the time he was given a bamlanivimab infusion and discharged with bronchodilators. He is not managed to get to the pharmacy to meat pickler the bronchodilators. On the day of admission he noticed worsening dyspnea especially dyspnea on exertion and, he returned to the emergency department for further evaluation. Home Medications Scheduled Bupropion HCl (Wellbutrin Xl) 150 Mg Tab.er.24h, 150 MG PO DAILY, (Reported) Ergocalciferol (Vitamin D2) (Vitamin D2) 50,000 Units Cap, 50,000 UNITS PO Q2WK, (Reported) Gemfibrozil (Gemfibrozil) 600 Mg Tablet, 600 MG PO BID, (Reported) Meloxicam (Meloxicam) 15 Mg Tablet, 15 MG PO DAILY, (Reported) Multivitamins (Thera M Plus Tablet) 1 Each Tablet, 1 TAB PO BID, (Reported) Ramipril (Altace) 5 Mg Capsule, 5 MG PO QHS, (Reported) Rosuvastatin Calcium (Rosuvastatin Calcium) 40 Mg Tablet, 40 MG PO DAILY, (Reported) Allergies Coded Allergies: Penicillins (Verified Allergy, Severe, anaph, 03/07/19) anaph primaquine (Verified Allergy, Severe, anaph, 03/07/19) anaph quinine (Verified Allergy, Severe, anaph, 03/07/19) anaph Past Medical History Medical History 1. COPD and "bronchial asthma" 2. Osteoarthritis and low back pain 3. Anxiety 4. Dyslipidemia 5. Congenital renal agenesis (solitary kidney) Surgical History 1. Inguinal hernia repair, right (09/2000) Family History His father at 77 years of age of prostate cancer His mother at 35 years of age of a "rare blood disease" He has a brother that of 44 years of age of ESRD He has a sister that at 50 years of age ESRD Social History * Smoker: former Smoker (quit in 2016, prior to that he had accrued a roughly 63-nncv-trxd history) Alcohol: rarely (social only) He is retired from [employer] A-FIB History Current/History of A-Fib/PAF?: No Review of Systems Constitutional: Reports: Fever, Malaise ENT: Reports: Head Aches, Sore Throat Skin: Denies: Rash, Lesions Pulmonary: Reports: Dyspnea, Cough Cardiovascular: Denies: Chest Pain, Palpitations, Edema Gastrointestinal: Denies: Nausea, Vomiting, Diarrhea Neurological: Denies: Change in speech, Confusion Psych: Reports: Mood Normal Physical Examination General Exam: Positive: Alert, Cooperative (when in the ER stretcher when I entered the room), No Acute Distress Eye Exam: Positive: PERRLA, Conjunctiva & lids normal, EOMI ENT Exam: Positive: Atraumatic, Mucous membr. moist/pink, Pharynx Normal Neck Exam: Positive: Supple; Negative: Lymphadenopathy Chest Exam: Positive: Clear to auscultation, Diminished Heart Exam: Positive: Tachycardic, Normal S1, Normal S2; Negative: Murmurs Abdomen Exam: Positive: Normal bowel sounds, Soft; Negative: Hepatospenomegaly Extremity Exam: Negative: Cyanosis, Edema Skin Exam: Negative: Nl turgor and temperature, Rash Neuro Exam: Positive: Normal Speech, Normal Tone Psych Exam: Positive: Mental status NL, Oriented x 3 Vital Signs Vital Signs Date Time Temp Pulse Resp B/P (MAP) Pulse Ox O2 Delivery O2 Flow Rate FiO2 07/18/20 18:46 101.3 16 164/96 (118) 07/18/20 18:45 114 93 07/18/20 16:00 Room Air Laboratory Data Labs 24H I reviewed his labs and imaging studies from 07/17/2020. Problems (1) Asthma exacerbation Status: Acute Problem Text: He has a COVID 19 infection, but I think the thing that has him back in the hospital is probably an asthma exacerbation that it was triggered by the viral infection. When I listened to him I did not hear any wheezing, however, the emergency department physician reported that he had both diminished breath sounds and significant wheezing when he first presented to the hospital. He has been treated with bronchodilators and seems to have improved. He has been given prednisone in the ER; I will continue IV dexamethasone in part because of the COVID 19 infection. (2) COVID-19 virus infection Status: Acute Problem Text: His vitals are worse today than they were yesterday including tachycardia and a fever. He now merits admission for his COVID 19 infection. I'll start him on dexamethasone and will monitor his oxygen saturations carefully. He received bamlanivimab yesterday. I don't think he is quite a candidate for remdesivir yet. Will monitor. (3) Hyperlipidemia Status: Chronic Problem Text: Continue home medications, monitor. (4) Anxiety Status: Chronic Problem Text: Continue home medications, monitor. Plan / VTE VTE Prophylaxis Ordered?: Yes (Lovenox/teds) Plan Advanced Directives: Health Care Proxy (HCP) (he identifies his primary care doctor, Dr. Lozada at the [facility], as the person he like to make decisions for him if he was unable to make his own decisions) Adán Call MD Jul 18, 2020 21:08
--- OUTSIDE RECORDS SUMMARY | 2020-07-18 21:26 | CCD ---
Author Author [facility] Organization [facility] Address Unknown Phone Unavailable Care Team Providers Care Child Care Teacher Name Role Phone Baudilio Paras Unavailable Paras [...] is protected by Article 27-F of the [facility] Public Health law. If you continue you may have access to information: Regarding HIV / AIDS; Provided by facilities licensed or operated by the [facility] Office of Mental Health; or Provided by the [facility] Office for People With Developmental Disabilities. If such information is present, then the following [facility] mandated warning applies: This information has been [...] law may result in a fine or detention sentence or both. A general authorization for [...] Psychotherapy - 45 min Attender: Mitesh Astudillo [facility] 07/15/2020 08:00:00 AM EST - 07/15/2020 08:00:00 AM EST [facility] ([facility]) Attender: Paras Astudillo 07/15/2020 12:00:00 AM EST [facility] ([facility]) Psychiatric Diagnostic Evaluation (Non-Medical) Attender: Dameon Astudillo [facility] 06/16/2020 08:00:00 AM EST - 06/16/2020 08:00:00 AM EST [facility] ([facility]) Attender: Paras Astudillo 06/16/2020 12:00:00 AM EST [facility] ([facility]) Psychiatric Diagnostic Evaluation (Non-Medical) Attender: Dameon Astudillo [facility] 06/08/2020 09:00:00 AM EST - 06/08/2020 09:00:00 AM EST [facility] ([facility]) Attender: Paras Astudillo 06/08/2020 12:00:00 AM EST [facility] ([facility]) Outpatient Attender: ARMIN HEIN MD Physical Therapy 01:30:00 PM EDT [facility] ([facility]) Outpatient Attender: ARMIN HEIN MD Physical Therapy 11:30:00 AM EDT [facility] ([facility]) Insurance Providers Payer name Policy type / Coverage type Policy ID Covered libertarian ID Covered libertarian's relationship to blankenship Policy Blankenship Plan Information BALAJI [id number] SP [id number] 500 [place] O [id number] S [id number] BALAJI [id number] SP [id number] 500 OTHER NO FAULT [id number] SP [id number] NATIONAL GENERAL INS O [id number] S [id number] MEDICAID [id number] SP [id number] SELF PAY ONLY [id number] SP [id number] MEDICAID M [id number] S [id number] [facility] [id number] SP [id number] [facility] O [id number] S [id number] [place] Part [place] [id number] Self [id number] [facility] Community Plan Commercial [id number] Self [id number] [place] Part B [id number] Self [id number] [place] Part [place] [id number] Self [id number] [place] [id number] Self [id number] [place] [id number] Self [id number] [place] [id number] Self [id number] SELF PAY ONLY [phone] SP [phone] [facility] [id number] [facility] [id number] [facility] [id number] Problems, Conditions, and Diagnoses Code Display Name Description Problem Type Effective Dates Data Source(s) F43.23 Adjustment disorder with mixed anxiety a nd depressed mood Adjustment Disorder, With mixed anxiety and depressed mood Condition 2020 12:00:00 AM EST [facility] ([facility]) Surgeries/Procedures Procedure Description Date Indications Data Source(s) Extended Individual Psychotherapy - 45 min 07/15/2020 12:00:00 AM EST - 07/15/2020 12:00:00 AM EST [facility] ([facility]) Extended Individual Psychotherapy - 45 min 12:00:00 AM EST [facility] ([facility]) Psychiatric Diagnostic Evaluation (Non-Medical) 06/16/2020 12:00:00 AM EST - 06/16/2020 12:00:00 AM EST [facility] ([facility]) Psychiatric Diagnostic Evaluation (Non-Medical) 2019 12:00:00 AM EST [facility] ([facility]) Psychiatric Diagnostic Evaluation (Non-Medical) 06/08/2020 12:00:00 AM EST - 06/08/2020 12:00:00 AM EST [facility] ([facility]) Psychiatric Diagnostic Evaluation (Non-Medical) 2019 12:00:00 AM EST [facility] ([facility]) Social History Code Duration Value Status Description Data Source(s ) Smoking 07/15/2020 12:00:00 AM EST Unknown if ever smoked comp leted Unknown if ever smoked [facility] ([facility]) Smoking 06/16/2020 12:00:00 AM EST Unknown if ever smoked comp leted Unknown if ever smoked [facility] ([facility]) Smoking 06/08/2020 12:00:00 AM EST Unknown if ever smoked comp leted Unknown if ever smoked [facility] ([facility]) Vital Signs ID Date Data Source UNK Name Value Range Interpretation Code Description Data Source(s) Body mass index (BMI) [Ratio] 32.5 kg/m2 32.5 k g/m2 [facility] ([facility] Body weight 240.00 [lb_av] 240.00 [lb_av] JOYCELYN T ([facility]) Body height 72 [in_i] 72 [in_i] [facility] ([facility] 6'0" Body temperature 97.7 [degF] 97.7 [degF] [facility] ([facility])
[2020-07-18 22:13] LABS: BASO % 0.1 % (0.0-1.0); HEMATOCRIT 40.6 % (42.0-52.0); HEMOGLOBIN 13.4 g/dl (13.5-17.5); LYMPH # 0.8 10^3/uL (1.5-5.0); MEAN CORPUSCULAR HEMOGLOBIN 30.4 pg (27.0-33.0); MEAN CORPUSCULAR VOLUME 92.1 fl (80.0-96.0); MONO # 0.3 10^3/uL (0.0-0.8); NEUTROPHILS # 9.8 10^3/uL (1.5-8.5); NEUTROPHILS % 88.6 % (36.0-66.0); PLATELET COUNT, AUTOMATED 173 10^3/uL (150-450); RED BLOOD COUNT 4.41 10^6/uL (4.30-6.10); WHITE BLOOD COUNT 11.1 10^3/uL (4.0-10.0)
[2020-07-18 22:25] LABS: INR 1.01; PARTIAL THROMBOPLASTIN TIME 27.5 SECONDS (24.2-38.5); PROTHROMBIN TIME 13.5 SECONDS (12.5-14.3)
[2020-07-18] MEDS: MULTIVITAMINS/MINERALS THERAP 1 TAB PO SCH (22:25)
[2020-07-18 22:28] LABS: D-DIMER QUANT 275.58 ng/ml (<500)
[2020-07-18] MEDS: ENOXAPARIN 60MG/0.6ML SYRINGE (J1650 PER 10MG) SC SCH (22:28)
[2020-07-18] MEDS ORDERED: ACETAMINOPHEN 500 MG TAB PO PRN (22:30)
[2020-07-18] MEDS: gemfibroziL 600 MG TAB PO SCH (22:35)
[2020-07-18 22:36] LABS: ALBUMIN 3.7 GM/DL (3.2-5.2); ALT/SGPT 46 U/L (12-78); BILIRUBIN,DIRECT 0.2 MG/DL (0.0-0.2); BILIRUBIN,TOTAL 0.7 MG/DL (0.2-1.0); BLOOD UREA NITROGEN 21 MG/DL (7-18); C REACTIVE PROTEIN QUANTITATIV 2.54 MG/DL (0.00-0.30); CALCIUM LEVEL 8.5 MG/DL (8.5-10.1); CARBON DIOXIDE LEVEL 23 MEQ/L (21-32); CHLORIDE LEVEL 107 MEQ/L (98-107); CPK CREATINE PHOSPHOKINASE 234 U/L (39-308); CREATININE FOR GFR 1.32 MG/DL (0.70-1.30); FERRITIN 725 NG/ML (26-388); GLOMERULAR FILTRATION RATE > 60.0 (>56); GLUCOSE, FASTING 128 MG/DL (70-100); LDH LACTATE DEHYDROGENASE 172 U/L (87-241); MAGNESIUM LEVEL 1.9 MG/DL (1.8-2.4); NT-PRO BNP 22 PG/ML (<125); POTASSIUM SERUM 4.2 MEQ/L (3.5-5.1); SODIUM LEVEL 138 MEQ/L (136-145); TOTAL PROTEIN 7.3 GM/DL (6.4-8.2); TROPONIN I < 0.02 NG/ML (< 0.10)
[2020-07-18 23:55] VITALS: O2SAT 94
[2020-07-18 23:56] VITALS: BP_SYST 140; BP_SYST 150; BP_DIAS 76; BP_DIAS 92
[2020-07-19 04:00] VITALS: O2SAT 95
[2020-07-19] MEDS ORDERED: NS 1,000 ML IV SCH (04:15)
[2020-07-19 05:06] VITALS: BP 108/66
[2020-07-19 05:39] LABS: APPEARANCE, URINE CLEAR (CLEAR); BACTERIA, URINE AUTO NEGATIVE (NEGATIVE); BILIRUBIN, URINE AUTO NEGATIVE (NEGATIVE); BLOOD, URINE BLOOD NEGATIVE (NEGATIVE); COLOR, URINE YELLOW (YELLOW); GLUCOSE, URINE (UA) AUTO NEGATIVE (NEGATIVE); KETONE, URINE AUTO NEGATIVE (NEGATIVE); LEUKOCYTE ESTERASE, URINE AUTO NEGATIVE (NEGATIVE); MUCUS, URINE SMALL (NEGATIVE); NITRITE, URINE AUTO NEGATIVE (NEGATIVE); PROTEIN, URINE AUTO 2+ mg/dL (NEGATIVE); RBC, URINE AUTO 1 /HPF (0-3); SPECIFIC GRAVITY URINE AUTO 1.021 (1.002-1.035); SQUAMOUS EPITHELIAL CELL UR AU 0 /HPF (0-6); UROBILINOGEN, URINE AUTO 0.2 mg/dL (0.0-2.0); WBC, URINE AUTO 0 /HPF (0-3)
[2020-07-19 07:48] VITALS: BP 137/87
[2020-07-19 08:00] VITALS: O2SAT 94
[2020-07-19 08:26] LABS: BASO % 0.1 % (0.0-1.0); HEMATOCRIT 38.7 % (42.0-52.0); HEMOGLOBIN 12.8 g/dl (13.5-17.5); LYMPH # 1.5 10^3/uL (1.5-5.0); LYMPH % 15.4 % (24.0-44.0); MEAN CORPUSCULAR HEMOGLOBIN 30.6 pg (27.0-33.0); MEAN CORPUSCULAR HGB CONC 33.1 g/dl (32.0-36.5); MEAN CORPUSCULAR VOLUME 92.6 fl (80.0-96.0); MONO # 0.6 10^3/uL (0.0-0.8); MONO % 6.2 % (0.0-5.0); NEUTROPHILS # 7.4 10^3/uL (1.5-8.5); NEUTROPHILS % 77.8 % (36.0-66.0); PLATELET COUNT, AUTOMATED 174 10^3/uL (150-450); RED BLOOD COUNT 4.18 10^6/uL (4.30-6.10); WHITE BLOOD COUNT 9.5 10^3/uL (4.0-10.0)
[2020-07-19] MEDS: MULTIVITAMINS/MINERALS THERAP 1 TAB PO SCH (08:35)
[2020-07-19] MEDS: gemfibroziL 600 MG TAB PO SCH (08:36)
[2020-07-19] MEDS: ENOXAPARIN 60MG/0.6ML SYRINGE (J1650 PER 10MG) SC SCH ×2 (08:38→08:41)
[2020-07-19 08:56] LABS: BLOOD UREA NITROGEN 22 MG/DL (7-18); CALCIUM LEVEL 8.5 MG/DL (8.5-10.1); CARBON DIOXIDE LEVEL 24 MEQ/L (21-32); CHLORIDE LEVEL 105 MEQ/L (98-107); GLOMERULAR FILTRATION RATE > 60.0 (>56); GLUCOSE, FASTING 100 MG/DL (70-100); POTASSIUM SERUM 4.2 MEQ/L (3.5-5.1); SODIUM LEVEL 137 MEQ/L (136-145)
[2020-07-19] MEDS ORDERED: dexameTHASONE 4 MG/ML 1ML VIAL (J1100 PER 1MG) IV SCH (09:00)
[2020-07-19] MEDS ORDERED: ROSUVASTATIN 10 MG TAB (CRESTOR) PO SCH (09:00)
[2020-07-19] MEDS ORDERED: buPROPion **XL** TABLET 150MG (WELLBUTRIN XL) PO SCH (09:00)
[2020-07-19] MEDS ORDERED: MELOXICAM (MOBIC) 7.5 MG TAB PO SCH (09:00)
[2020-07-19] MEDS ORDERED: ASPIRIN 81 MG ENTERIC TAB PO SCH (09:00)
[2020-07-19] MEDS: COMBIVENT RESPIMAT 100-20MCG INHALER 4GM INH SCH ×2 (09:22→14:21)
[2020-07-19] MEDS ORDERED: DOXY-350 PO (11:54)
[2020-07-19] MEDS ORDERED: VENTAER INH (11:54)
[2020-07-19] MEDS ORDERED: DEXA0.5E2 PO (11:54)
--- NOTE | 2020-07-19 15:58 | DS.PDOC ---
Discharge Summary General Date of Admission Jul 18, 2020 at 20:49 Date of Discharge [facility] 2020 Attending Physician: ДМИТРИЙ VOGT MD Discharge Summary PROCEDURES PERFORMED DURING STAY: [None]. ADMITTING DIAGNOSES: 1. Acute asthma exacerbation 2. Covid 19 infection 3. COPD 4. Anxiety 5. Dyslipidemia 6. Osteoarthritis DISCHARGE DIAGNOSES: 1. Covid 19 2. COPD 3. Anxiety 4. Dyslipidemia 5. Osteoarthritis COMPLICATIONS/CHIEF COMPLAINT: Asthma Exacerbation,Covid 19. HISTORY OF PRESENT ILLNESS: 54-year-old male patient who presented to the ED with complaining of difficulty with breathing, and recently had an asthma attack 5 days ago and required no medications than. The ED he was wheezing and was given steroids and albuterol and his symptoms resolved. In the ED he was po sitive for coronary 19 and was admitted overnight for observation. HOSPITAL COURSE: In the hospital stay overnight he had no symptoms, and was on room air saturating at 94%. He had a mild white count on admission on the repeat labs his white count is normal and rest of the labs were normal as well. DISCHARGE MEDICATIONS: Please see below. ALLERGIES: Please see below. PHYSICAL EXAMINATION ON DISCHARGE: General Exam: Positive: Alert, Cooperative (when in the ER stretcher when I entered the room), No Acute Distress Eye Exam: Positive: PERRLA, Conjunctiva & lids normal, EOMI ENT Exam: Positive: Atraumatic, Mucous membr. moist/pink, Pharynx Normal Neck Exam: Positive: Supple; Negative: Lymphadenopathy Chest Exam: Positive: Clear to auscultation, Diminished Heart Exam: Positive: Tachycardic, Normal S1, Normal S2; Negative: Murmurs Abdomen Exam: Positive: Normal bowel sounds, Soft; Negative: Hepatospenomegaly Extremity Exam: Negative: Cyanosis, Edema Skin Exam: Negative: Nl turgor and temperature, Rash Neuro Exam: Positive: Normal Speech, Normal Tone Psych Exam: Positive: Mental status NL, Oriented x 3 LABORATORY DATA: Please see below. IMAGING: None PROGNOSIS: Good ACTIVITY: [As tolerated]. DIET: As tolerated DISCHARGE PLAN: Follow-up with PCP in 1-2 weeks, follow up with pulmonology in one month. DISPOSITION: To home DISCHARGE INSTRUCTIONS: 1. Patient was prescribed doxycycline for 4 days twice a day. 2. Please take Dexamethasone 2 mg for 4 days. 3. Will give him albuterol inhaler 2 puffs every 4 hours as needed. ITEMS TO FOLLOWUP ON ON OUTPATIENT: 1. Follow with PCP in 1-2 weeks 2. Make an appointment/follow up with pulmonology in one month for asthma/ COPD DISCHARGE CONDITION: [Stable]. TIME SPENT ON DISCHARGE: Greater than 30 minutes. Vital Signs/I&Os Vital Signs Date Time Temp Pulse Resp B/P (MAP) Pulse Ox O2 Delivery O2 Flow Rate FiO2 07/19/20 11:45 91 Room Air 07/19/20 07:48 99.6 92 18 137/87 (104) 07/18/20 23:56 I&O- Last 24 Hours up to 6 AM 07/19/20 06:00 Intake Total 480 ml Output Total 0 ml Balance 480 ml Laboratory Data Labs 24H Laboratory Tests 2 07/18/20 22:00: Immature Granulocyte % (Auto) 1.3, Neutrophils (%) (Auto) 88.6H, Lymphocytes (%) (Auto) 7.0L, Monocytes (%) (Auto) 3.0, Eosinophils (%) (Auto) 0.0, Basophils (%) (Auto) 0.1, Neutrophils # (Auto) 9.8H, Lymphocytes # (Auto) 0.8L, Monocytes # (Auto) 0.3, Eosinophils # (Auto) 0.0, Basophils # (Auto) 0.0, Nucleated Red Blood Cells % (auto) 0.0, Prothrombin Time 13.5, Prothromb Time International R atio 1.01, Activated Partial Thromboplast Time 27.5, Fibrinogen 426, D-Dimer, Quantitative 275.58, Anion Gap 8, Glomerular Filtration Rate > 60.0, Calcium Level 8.5, Magnesium Level 1.9, Ferritin 725H, Total Bilirubin 0.7, Direct Bilirubin 0.2, Aspartate Amino Transf (AST/SGOT) 24, Alanine Aminotransferase (ALT/SGPT) 46, Alkaline Phosphatase 74, Lactate Dehydrogenase 172, Total Creatine Kinase 234, Troponin I < 0.02, C-Reactive Protein, Quantitative 2.54H, MP-[id number]-Type Natriuretic Peptide 22, Total Protein 7.3, Albumin 3.7, Albumin/Globulin Ratio 1.0, Procalcitonin 0.21 07/19/20 05:20: Urine Color YELLOW, Urine Appearance CLEAR, Urine pH 5.0, Urine Specific Warren 1.021, Urine Protein 2+H, Urine Glucose (Auto)(UA) NEGATIVE, Urine Ketones (Auto) NEGATIVE, Urine Blood NEGATIVE, Urine Nitrite NEGATIVE, Urine Bilirubin NEGATIVE, Urine Urobilinogen 0.2, Urine Leukocyte Esterase (Auto) NEGATIVE, Urine WBC (Auto) 0, Urine RBC (Auto) 1, Urine Hyaline Casts (Auto) 0, Urine Bacteria (Auto) NEGATIVE, Urine Squamous Epithelial Cells 0, Urine Mucus (Auto) SMALL, Urine Sperm (Auto) 07/19/20 07:40: Immature Granulocyte % (Auto) 0.5, Neutrophils (%) (Auto) 77.8H, Lymphocytes (%) (Auto) 15.4L, Monocytes (%) (Auto) 6.2H, Eosinophils (%) (Auto) 0.0, Basophils (%) (Auto) 0.1, Neutrophils # (Auto) 7.4, Lymphocytes # (Auto) 1.5, Monocytes # (Auto) 0.6, Eosinophils # (Auto) 0.0, Basophils # (Auto) 0.0, Nucleated Red Blood Cells % (auto) 0.0, D-Dimer, Quantitative < 270.0, Anion Gap 8, Glomerular Filtration Rate > 60.0, Calcium Level 8.5 CBC/BMP Laboratory Tests 07/18/20 22:00 07/19/20 07:40 Discharge Medications Scheduled Bupropion HCl (Wellbutrin Xl) 150 Mg Tab.er.24h, 150 MG PO DAILY, (Reported) Dexamethasone (Dexamethasone) 0.5 Mg/5 Ml Elixir, 2 MG PO DAILY Doxycycline Monohydrate (Doxycycline) 100 Mg Capsule, 100 MG PO BID Ergocalciferol (Vitamin D2) (Vitamin D2) 50,000 Units Cap, 50,000 UNITS PO Q2WK, (Reported) Gemfibrozil (Gemfibrozil) 600 Mg Tablet, 600 MG PO BID, (Reported) Meloxicam (Meloxicam) 15 Mg Tablet, 15 MG PO DAILY, (Reported) Multivitamins (Thera M Plus Tablet) 1 Each Tablet, 1 TAB PO BID, (Reported) Ramipril (Altace) 5 Mg Capsule, 5 MG PO QHS, (Reported) Rosuvastatin Calcium (Rosuvastatin Calcium) 40 Mg Tablet, 40 MG PO DAILY, (Reported) Scheduled PRN Albuterol Sulfate (Ventolin Hfa) 18 Gm Hfa.aer.ad, 2 PUFF INH Q4-6HP PRN for wheezing Allergies Coded Allergies: Penicillins (Verified Allergy, Severe, anaph, 03/07/19) anaph primaquine (Verified Allergy, Severe, anaph, 03/07/19) anaph quinine (Verified Allergy, Severe, anaph, 03/07/19) anaph GME ATTESTATION GME ATTESTATION My faculty preceptor for this patient encounter was physically present during the encounter and was fully available. All aspects of the patient interview, examination, medical decision making process, and medical care plan development were reviewed and approved by the faculty preceptor. The faculty preceptor is aware and concurs with the plan as stated in the body of this note and will attest to such by his/her cosignature. ATTENDING NOTE I, Дмитрий Vogt MD, have independently examined this patient and performed my own physical exam, as well as reviewed the documentation and edited where necessary. I have discussed in detail with the resident / student the findings and plan of treatment as documented by the resident / student and edited their note. I agree with their findings and treatment plan and have edited their documentation. Delmer Mora MD Jul 19, 2020 15:58 ДМИТРИЙ VOGT MD Jul 22, 2020 13:53
== END 2020-07-19 17:40 | disposition home health service (06) | DRG 137 ==
LOC: M ED 15:42 → M ED INP 20:49 → M PSY 23:22 → M 4MAIN 23:23
PROVIDERS: ADMIT Family Medicine; ATTEND Internal Medicine
DX: U07.1 COVID-19 (principal); J45.901 Unspecified asthma with (acute) exacerbation; F41.9 Anxiety disorder, unspecified; E78.5 Hyperlipidemia, unspecified; M19.90 Unspecified osteoarthritis, unspecified site; Z79.899 Other long term (current) drug therapy; Z88.0 Allergy status to penicillin; Z88.8 Allergy status to other drugs, medicaments and biological substances

== ENCOUNTER 2022-07-17 10:55 | Emergency (ER) | payer OTHER ==
[~2022-07-17] VITALS: Ht 182.9 cm; Wt 113.6 kg
[~2022-07-17 10:55] MED LIST changes: +BUPR-71 PO; -BUPR150T5 PO; +DEXA0.5E2 PO; +DOXY-444 PO; +ERGO500029 PO; +GABA-283 PO; -GABA-845 PO; -IBUP200T45 PO; +IBUP200T46 PO; +ROSU40TA4 PO; +VITMTA PO; +WELLTAB38 PO
[2022-07-17 11:32] LABS: BASO % 0.7 % (0.0-1.0); EOS # 0.3 10^3/uL (0.0-0.5); EOS % 6.1 % (0.0-3.0); HEMOGLOBIN 14.3 g/dl (13.5-17.5); LYMPH # 1.8 10^3/uL (1.5-5.0); LYMPH % 32.7 % (24.0-44.0); MEAN CORPUSCULAR HEMOGLOBIN 30.8 pg (27.0-33.0); MEAN CORPUSCULAR HGB CONC 33.3 g/dl (32.0-36.5); MEAN CORPUSCULAR VOLUME 92.5 fl (80.0-96.0); MONO # 0.4 10^3/uL (0.0-0.8); NEUTROPHILS # 2.9 10^3/uL (1.5-8.5); NEUTROPHILS % 52.6 % (36.0-66.0); PLATELET COUNT, AUTOMATED 218 10^3/uL (150-450); RED BLOOD COUNT 4.65 10^6/uL (4.30-6.10); WHITE BLOOD COUNT 5.4 10^3/uL (4.0-10.0)
[2022-07-17 11:44] LABS: PROTHROMBIN TIME 13.4 SECONDS (12.5-14.5)
[2022-07-17 11:45] LABS: PARTIAL THROMBOPLASTIN TIME 24.7 SECONDS (24.8-34.2)
[2022-07-17 11:54] LABS: BLOOD UREA NITROGEN 12 MG/DL (9-23); CALCIUM LEVEL 8.5 MG/DL (8.5-10.1); CARBON DIOXIDE LEVEL 25 MMOL/L (20-31); CHLORIDE LEVEL 105 MMOL/L (98-107); CREATININE FOR GFR 0.83 MG/DL (0.70-1.30); GLOMERULAR FILTRATION RATE > 60.0 (>56); GLUCOSE, FASTING 99 MG/DL (60-100); POTASSIUM SERUM 4.2 MMOL/L (3.5-5.1); SODIUM LEVEL 139 MMOL/L (136-145)
[2022-07-17 11:59] LABS: CK-MB VALUE MASS < 1.0 NG/ML (<3.6)
[2022-07-17 12:10] LABS: CPK CREATINE PHOSPHOKINASE 87 U/L (46-171); MB/CK RELATIVE INDEX 1.14 (< OR =4)
[2022-07-17] MEDS ORDERED: NS 1,000 ML IV SCH (12:15)
[2022-07-17] MEDS ORDERED: ISOVUE-370 76% 100ML VIAL As Ordered ONE (12:20)
[2022-07-17 12:56] LABS: CK-MB VALUE MASS < 1.0 NG/ML (<3.6)
[2022-07-17 13:07] LABS: CPK CREATINE PHOSPHOKINASE 73 U/L (46-171); MB/CK RELATIVE INDEX 1.36 (< OR =4)
[2022-07-17 13:57] VITALS: BP 129/81
== END 2022-07-17 14:18 | disposition home or self-care (01) ==
LOC: M ED 10:55 → EDBD 10:55 → M ED 14:18
DX: R07.9 Chest pain, unspecified (principal); J44.9 Chronic obstructive pulmonary disease, unspecified; G47.30 Sleep apnea, unspecified; M54.9 Dorsalgia, unspecified; Q60.0 Renal agenesis, unilateral; K44.9 Diaphragmatic hernia without obstruction or gangrene; Z87.891 Personal history of nicotine dependence; Z88.0 Allergy status to penicillin; Z79.51 Long term (current) use of inhaled steroids

== ENCOUNTER 2022-08-04 14:31 | Emergency (ER) | payer OTHER ==
[~2022-08-04] VITALS: Ht 182.9 cm; Wt 113.6 kg
[2022-08-04] MEDS ORDERED: ALBUTEROL SULFATE 2.5MG/0.5ML INH NEB SOLN INH ONE (15:15)
[2022-08-04] MEDS ORDERED: IPRATROPIUM 0.5MG/ALBUTEROL 2.5MG INH SOL UD 3ML (DUONEB) NEB ONE (15:15)
[2022-08-04] MEDS ORDERED: methylPREDNISolone 125MG 2ML VIAL IV ONE (15:15)
[2022-08-04 15:17] LABS: BASO % 0.5 % (0.0-1.0); EOS # 0.2 10^3/uL (0.0-0.5); EOS % 2.5 % (0.0-3.0); HEMATOCRIT 45.3 % (42.0-52.0); LYMPH # 1.4 10^3/uL (1.5-5.0); LYMPH % 18.3 % (24.0-44.0); MEAN CORPUSCULAR HEMOGLOBIN 30.8 pg (27.0-33.0); MEAN CORPUSCULAR HGB CONC 33.1 g/dl (32.0-36.5); MONO # 0.6 10^3/uL (0.0-0.8); MONO % 7.4 % (2.0-8.0); NEUTROPHILS # 5.3 10^3/uL (1.5-8.5); NEUTROPHILS % 70.4 % (36.0-66.0); PLATELET COUNT, AUTOMATED 225 10^3/uL (150-450); RED BLOOD COUNT 4.87 10^6/uL (4.30-6.10); WHITE BLOOD COUNT 7.5 10^3/uL (4.0-10.0)
[2022-08-04 15:45] LABS: ALBUMIN 3.9 G/DL (3.2-5.2); ALKALINE PHOSPHATASE 98 U/L (46-116); ALT/SGPT 18 U/L (7.0-40); AST/SGOT 34 U/L (<34); BILIRUBIN,DIRECT < 0.1 MG/DL (<0.4); BILIRUBIN,TOTAL 0.6 MG/DL (0.3-1.2); BLOOD UREA NITROGEN 12 MG/DL (9-23); CALCIUM LEVEL 8.6 MG/DL (8.5-10.1); CARBON DIOXIDE LEVEL 24 MMOL/L (20-31); CHLORIDE LEVEL 103 MMOL/L (98-107); CK-MB VALUE MASS < 1.0 NG/ML (<3.6); CPK CREATINE PHOSPHOKINASE 122 U/L (46-171); CREATININE FOR GFR 0.99 MG/DL (0.70-1.30); GLOMERULAR FILTRATION RATE > 60.0 (>56); GLUCOSE, FASTING 95 MG/DL (60-100); MB/CK RELATIVE INDEX 0.81 (< OR =4); POTASSIUM SERUM 4.8 MMOL/L (3.5-5.1); SODIUM LEVEL 137 MMOL/L (136-145); TOTAL PROTEIN 7.6 G/DL (5.7-8.2)
[2022-08-04 16:02] LABS: RSV AMPLIFICATION NEGATIVE (NEGATIVE)
[2022-08-04] MEDS ORDERED: PRED20TA PO (17:38)
[2022-08-04] MEDS ORDERED: COMBAER6 INH (17:38)
[2022-08-04 18:01] VITALS: BP 149/77
== END 2022-08-04 18:33 | disposition home or self-care (01) ==
LOC: M ED 14:31 → EDBD 14:31 → M ED 18:33
DX: U07.1 COVID-19 (principal); J45.901 Unspecified asthma with (acute) exacerbation; R00.0 Tachycardia, unspecified; J44.9 Chronic obstructive pulmonary disease, unspecified; E78.5 Hyperlipidemia, unspecified; F41.9 Anxiety disorder, unspecified; Z87.891 Personal history of nicotine dependence; Z88.0 Allergy status to penicillin; Z79.51 Long term (current) use of inhaled steroids; Z79.899 Other long term (current) drug therapy
CPT/HCPCS: 71045; 80048; 80076; 82550; 82553; 83880; 85025; 87631; 93005; 93041; 94640; 94760; 96374; 99285; J2930

== ENCOUNTER 2022-08-22 20:59 | Emergency (ER) | payer OTHER ==
[~2022-08-22] VITALS: Ht 182.9 cm; Wt 113.0 kg
[~2022-08-22 20:59] MED LIST changes: +COMBAER6 INH; +PRED20TA PO
[2022-08-22] MEDS ORDERED: ROSU10TA6 PO (21:11)
[2022-08-23 00:35] LABS: AMPHETAMINES LEVEL URINE NEGATIVE (NEGATIVE); CANNABINOIDS URINE NEGATIVE (NEGATIVE); PHENCYCLIDINE URINE NEGATIVE (NEGATIVE)
[2022-08-23 00:36] LABS: BARBITURATES URINE NEGATIVE (NEGATIVE); BENZODIAZEPINES URINE NEGATIVE (NEGATIVE); COCAINE METABOLITE URINE NEGATIVE (NEGATIVE); METHADONE URINE NEGATIVE (NEGATIVE); OPIATES URINE NEGATIVE (NEGATIVE)
[2022-08-23 00:37] LABS: BASO % 0.6 % (0.0-1.0); EOS # 0.2 10^3/uL (0.0-0.5); EOS % 2.5 % (0.0-3.0); ETHYL ALCOHOL (ETHANOL) 0.007 % (0.000-0.010); HEMATOCRIT 43.3 % (42.0-52.0); HEMOGLOBIN 14.4 g/dl (13.5-17.5); LYMPH # 2.1 10^3/uL (1.5-5.0); LYMPH % 32.6 % (24.0-44.0); MEAN CORPUSCULAR HEMOGLOBIN 30.8 pg (27.0-33.0); MEAN CORPUSCULAR HGB CONC 33.3 g/dl (32.0-36.5); MEAN CORPUSCULAR VOLUME 92.7 fl (80.0-96.0); MONO # 0.4 10^3/uL (0.0-0.8); MONO % 6.2 % (2.0-8.0); NEUTROPHILS # 3.7 10^3/uL (1.5-8.5); NEUTROPHILS % 57.2 % (36.0-66.0); PLATELET COUNT, AUTOMATED 224 10^3/uL (150-450); RED BLOOD COUNT 4.67 10^6/uL (4.30-6.10); WHITE BLOOD COUNT 6.5 10^3/uL (4.0-10.0)
[2022-08-23 00:39] LABS: BLOOD UREA NITROGEN 12 MG/DL (9-23); CALCIUM LEVEL 8.7 MG/DL (8.5-10.1); CARBON DIOXIDE LEVEL 24 MMOL/L (20-31); CHLORIDE LEVEL 107 MMOL/L (98-107); CREATININE FOR GFR 0.94 MG/DL (0.70-1.30); GLOMERULAR FILTRATION RATE > 60.0 (>56); GLUCOSE, FASTING 97 MG/DL (60-100); MAGNESIUM LEVEL 1.9 MG/DL (1.8-2.4); POTASSIUM SERUM 4.4 MMOL/L (3.5-5.1); SODIUM LEVEL 139 MMOL/L (136-145)
[2022-08-23 00:45] VITALS: BP 178/86
== END 2022-08-23 02:01 | disposition home or self-care (01) ==
LOC: M ED 20:59
DX: S06.0XAA Concussion with loss of consciousness status unknown, initial encounter (principal); S09.90XA Unspecified injury of head, initial encounter; W00.0XXA Fall on same level due to ice and snow, initial encounter; Y92.410 Unspecified street and highway as the place of occurrence of the external cause; M48.02 Spinal stenosis, cervical region; Z79.899 Other long term (current) drug therapy; Z88.0 Allergy status to penicillin; Z88.8 Allergy status to other drugs, medicaments and biological substances

== ENCOUNTER 2023-02-25 12:37 | Emergency (ER) | payer OTHER ==
[~2023-02-25] VITALS: Ht 182.9 cm; Wt 109.4 kg
[~2023-02-25 12:37] MED LIST changes: -GABA-283 PO; +GABA-284 PO; +ROSU10TA6 PO
[2023-02-25] MEDS ORDERED: MELO15TA28 PO (12:51)
[2023-02-25] MEDS ORDERED: FENO145T7 PO (12:51)
[2023-02-25] MEDS ORDERED: RAMI1CAP26 PO (12:51)
[2023-02-25 14:03] LABS: BASO % 0.7 % (0.0-1.0); EOS # 0.3 10^3/uL (0.0-0.5); EOS % 5.4 % (0.0-3.0); HEMOGLOBIN 13.1 g/dl (13.5-17.5); LYMPH # 2.2 10^3/uL (1.5-5.0); LYMPH % 37.4 % (24.0-44.0); MEAN CORPUSCULAR HEMOGLOBIN 30.8 pg (27.0-33.0); MEAN CORPUSCULAR HGB CONC 33.6 g/dl (32.0-36.5); MEAN CORPUSCULAR VOLUME 91.8 fl (80.0-96.0); MONO # 0.5 10^3/uL (0.0-0.8); NEUTROPHILS # 2.9 10^3/uL (1.5-8.5); NEUTROPHILS % 47.8 % (36.0-66.0); PLATELET COUNT, AUTOMATED 226 10^3/uL (150-450); RED BLOOD COUNT 4.25 10^6/uL (4.30-6.10)
[2023-02-25] MEDS ORDERED: ISOVUE-370 76% 100ML VIAL As Ordered ONE (14:10)
[2023-02-25] MEDS ORDERED: NS 1,000 ML IV ONE (14:10)
[2023-02-25 14:18] LABS: INR 1.15; PROTHROMBIN TIME 14.4 SECONDS (12.5-14.5)
[2023-02-25 14:19] LABS: PARTIAL THROMBOPLASTIN TIME 25.6 SECONDS (24.8-34.2)
[2023-02-25 14:32] LABS: LIPASE 36 U/L (12-53)
[2023-02-25 14:34] LABS: CPK CREATINE PHOSPHOKINASE 177 U/L (46-171)
[2023-02-25 14:35] LABS: ALBUMIN 3.8 G/DL (3.2-5.2); ALKALINE PHOSPHATASE 58 U/L (46-116); ALT/SGPT 19 U/L (7.0-40); AST/SGOT 9 U/L (<34); BILIRUBIN,DIRECT 0.2 MG/DL (<0.4); BILIRUBIN,TOTAL 0.5 MG/DL (0.3-1.2); BLOOD UREA NITROGEN 17 MG/DL (9-23); CALCIUM LEVEL 8.9 MG/DL (8.5-10.1); CARBON DIOXIDE LEVEL 27 MMOL/L (20-31); CHLORIDE LEVEL 109 MMOL/L (98-107); CK-MB VALUE MASS < 1.0 NG/ML (<3.6); GLOMERULAR FILTRATION RATE > 60.0 (>56); GLUCOSE, FASTING 87 MG/DL (60-100); MB/CK RELATIVE INDEX 0.56 (< OR =4); POTASSIUM SERUM 4.2 MMOL/L (3.5-5.1); SODIUM LEVEL 141 MMOL/L (136-145); TOTAL PROTEIN 6.9 G/DL (5.7-8.2)
[2023-02-25 14:39] LABS: FREE T4 1.15 NG/DL (0.89-1.76); THYROID STIMULATING HORMONE 1.264 uIU/ML (0.55-4.78)
[2023-02-25 14:42] LABS: RSV AMPLIFICATION NEGATIVE (NEGATIVE)
[2023-02-25 15:37] LABS: CK-MB VALUE MASS < 1.0 NG/ML (<3.6)
[2023-02-25 15:52] LABS: CPK CREATINE PHOSPHOKINASE 168 U/L (46-171); MB/CK RELATIVE INDEX 0.59 (< OR =4)
[2023-02-25] MEDS ORDERED: META1TAB22 PO (16:24)
[2023-02-25] MEDS ORDERED: PERC5TAB12 PO (16:24)
[2023-02-25 17:45] VITALS: BP 127/94; TEMP 97.1; O2SAT 98
== END 2023-02-25 18:11 | disposition home or self-care (01) ==
LOC: M ED 12:37
DX: R07.9 Chest pain, unspecified (principal); M50.30 Other cervical disc degeneration, unspecified cervical region; M43.02 Spondylolysis, cervical region; I10 Essential (primary) hypertension; E78.5 Hyperlipidemia, unspecified; J45.909 Unspecified asthma, uncomplicated; F41.9 Anxiety disorder, unspecified; Z88.0 Allergy status to penicillin; F17.200 Nicotine dependence, unspecified, uncomplicated; Z79.899 Other long term (current) drug therapy
CPT/HCPCS: 71045; 71275; 72125; 80047; 80048; 80076; 82550; 82553; 83690; 83880; 84439; 84443; 85025; 85610; 85730; 87631; 93005; 93041; 94760; 96360; 96361; 99285; Q9967

== ENCOUNTER → 2023-11-13 | Outpatient (REF) ==
[~2023-11-13] MED LIST changes: +ACET1TAB55 PO; +CELE100C PO; +DOXY-440 PO; -DOXY-444 PO; +DRIS50003 PO; +FENO145T7 PO; +META1TAB22 PO; +PERC5TAB12 PO; +RAMI10CA64 PO; -ROSU10TA6 PO; +ROSU10TA61 PO; -ROSU40TA4 PO; +ROSU40TA63 PO
== END ==
LOC: M PLALAB 13:02
PROVIDERS: ATTEND Internal Medicine
DX: R52 Pain, unspecified (principal)

== ENCOUNTER 2024-09-24 20:36 | Emergency (ER) | payer OTHER ==
[~2024-09-24] VITALS: Ht 180.3 cm; Wt 115.9 kg
[~2024-09-24 20:36] MED LIST changes: +META-10 PO; -META1TAB22 PO; -ROSU40TA63 PO; +ROSU40TA81 PO
[2024-09-25] MEDS: ACETAMINOPHEN *IV* 1,000 MG in IV 1 EA IV ONE (05:36)
[2024-09-25] MEDS: NS (Normal Saline) 0.9% 1,000 ML IV ONE (05:36)
[2024-09-25 05:38] LABS: KETONE, URINE AUTO RFX NEGATIVE (NEGATIVE); LEUKOCYTE ESTERASE UR AUTO RFX NEGATIVE (NEGATIVE); NITRITE, URINE AUTO RFX NEGATIVE (NEGATIVE); RBC, URINE AUTO RFX 0 /HPF (0-3); SQUAM EPITHELIAL CELL UR AURFX 0 /HPF (0-6); WBC, URINE AUTO RFX 0 /HPF (0-3)
[2024-09-25 05:49] LABS: BASO % 0.5 % (0.0-1.0); EOS # 0.2 10^3/uL (0.0-0.5); EOS % 2.6 % (0.0-3.0); HEMATOCRIT 41.4 % (42.0-52.0); HEMOGLOBIN 13.9 g/dl (13.5-17.5); LYMPH # 2.4 10^3/uL (1.5-5.0); LYMPH % 37.2 % (24.0-44.0); MEAN CORPUSCULAR HEMOGLOBIN 30.9 pg (27.0-33.0); MEAN CORPUSCULAR HGB CONC 33.6 g/dl (32.0-36.5); MONO # 0.4 10^3/uL (0.0-0.8); MONO % 6.3 % (2.0-8.0); NEUTROPHILS # 3.4 10^3/uL (1.5-8.5); NEUTROPHILS % 52.8 % (36.0-66.0); PLATELET COUNT, AUTOMATED 243 10^3/uL (150-450); WHITE BLOOD COUNT 6.5 10^3/uL (4.0-10.0)
[2024-09-25 06:29] LABS: ALBUMIN 4.1 G/DL (3.2-5.2); ALKALINE PHOSPHATASE 53 U/L (40-129); ALT/SGPT 24 U/L (7.0-40); AST/SGOT 56 U/L (<34); BILIRUBIN,DIRECT 0.1 MG/DL (<0.4); BILIRUBIN,TOTAL 0.4 MG/DL (0.3-1.2); BLOOD UREA NITROGEN 13 MG/DL (9-23); CARBON DIOXIDE LEVEL 24 MMOL/L (20-31); CHLORIDE LEVEL 107 MMOL/L (98-107); CREATININE FOR GFR 1.12 MG/DL (0.70-1.30); GLOMERULAR FILTRATION RATE > 60.0 (>56); GLUCOSE, FASTING 107 MG/DL (60-100); LIPASE 37 U/L (12-53); SODIUM LEVEL 140 MMOL/L (136-145); TOTAL PROTEIN 7.4 G/DL (5.7-8.2)
[2024-09-25 10:00] VITALS: O2SAT 97
[2024-09-25 10:01] VITALS: BP 145/91; TEMP 96
== END 2024-09-25 10:20 | disposition home or self-care (01) ==
LOC: M ED 20:36 → EDBD 20:36 → M ED 09-25 10:20
DX: M54.9 Dorsalgia, unspecified (principal); J44.9 Chronic obstructive pulmonary disease, unspecified; E78.5 Hyperlipidemia, unspecified; M19.90 Unspecified osteoarthritis, unspecified site; Z79.899 Other long term (current) drug therapy; Z88.8 Allergy status to other drugs, medicaments and biological substances; Z88.0 Allergy status to penicillin
CPT/HCPCS: 74176; 80048; 80076; 81001; 83690; 84132; 85025; 93041; 96365; 99285; J0131

== ENCOUNTER → 2025-01-27 | Outpatient (REF) | LOC: M PLAIMG 12:51 | PROVIDERS: ATTEND Internal Medicine | DX: M54.50 Low back pain, unspecified (principal) ==